=== PATIENT | male | born 1980 | race Caucasian/White ===

== ENCOUNTER 2016-10-31 20:21 | Emergency (ER) | payer OTHER | END 2016-10-31 21:54 | disposition home or self-care (01) | LOC: ER1 20:21 | DX: S83.92XA Sprain of unspecified site of left knee, initial encounter (principal); Z88.6 Allergy status to analgesic agent; X58.XXXA Exposure to other specified factors, initial encounter; Y92.009 Unspecified place in unspecified non-institutional (private) residence as the place of occurrence of the external cause | CPT/HCPCS: 73564; 99283 ==

== ENCOUNTER 2020-11-23 12:43 | Inpatient (IN) | payer OTHER ==
[~2020-11-23] VITALS: Ht 182.9 cm; Wt 125.2 kg
[~2020-11-23 12:43] MED LIST: IBUPROFEN600 MG PO; ZYLOPRIM 100 M100 MG PO
[2020-11-23 14:21] LABS: HEMOGLOBIN 13.3 gm/dl (14.0-17.5); RED BLOOD COUNT 4.47 M/UL (4.20-5.50); WHITE BLOOD COUNT 13.9 K/UL (4.5-11.0)
[2020-11-23 15:38] LABS: BUN/CREATININE RATIO 5 (0-10)
[2020-11-24 03:12] LABS: HEMOGLOBIN 13.2 gm/dl (14.0-17.5); RED BLOOD COUNT 4.43 M/UL (4.20-5.50); WHITE BLOOD COUNT 14.1 K/UL (4.5-11.0)
[2020-11-24 03:58] LABS: BUN/CREATININE RATIO 6 (0-10)
[2020-11-25 06:14] LABS: HEMOGLOBIN 12.7 gm/dl (14.0-17.5); RED BLOOD COUNT 4.08 M/UL (4.20-5.50); WHITE BLOOD COUNT 12.2 K/UL (4.5-11.0)
[2020-11-25 10:04] LABS: BUN/CREATININE RATIO 4 (0-10)
[2020-11-26 03:52] LABS: RED BLOOD COUNT 4.21 M/UL (4.20-5.50); WHITE BLOOD COUNT 12.2 K/UL (4.5-11.0)
[2020-11-26 04:24] LABS: BUN/CREATININE RATIO 6 (0-10)
[2020-11-27 05:29] LABS: HEMOGLOBIN 12.5 gm/dl (14.0-17.5); RED BLOOD COUNT 4.05 M/UL (4.20-5.50)
[2020-11-27 05:31] LABS: BUN/CREATININE RATIO 8 (0-10)
[2020-11-27 05:34] LABS: WHITE BLOOD COUNT 8.5 K/UL (4.5-11.0)
== END 2020-11-27 15:28 | disposition home or self-care (01) | DRG 101 ==
LOC: ER1 12:43 → CDU 18:26 → MED SURG 4 18:26
PROVIDERS: Emergency Medicine; Internal Medicine Infectious Disease; Physician Assistant Medical; ADMIT Family Medicine
DX: G40.89 Other seizures (principal); M62.82 Rhabdomyolysis; E87.1 Hypo-osmolality and hyponatremia; E87.6 Hypokalemia; A08.4 Viral intestinal infection, unspecified; E86.0 Dehydration; R55 Syncope and collapse; G31.84 Mild cognitive impairment of uncertain or unknown etiology; R11.10 Vomiting, unspecified; Z88.6 Allergy status to analgesic agent; Z84.89 Family history of other specified conditions
CPT/HCPCS: 0240U; 36415; 70450; 70551; 71045; 80048; 80053; 81001; 82550; 82553; 83605; 83690; 83735; 83874; 84295; 84484; 85025; 85027; 93005; 95819; 96374; 96375; 97161; 99285; G0378; J2060; J2405; J7030

== ENCOUNTER 2021-01-23 13:51 | Emergency (ER) | payer OTHER ==
[2021-01-23 15:35] LABS: BUN/CREATININE RATIO 8 (0-10)
[2021-01-23 16:09] LABS: HEMOGLOBIN 14.4 gm/dl (14.0-17.5); RED BLOOD COUNT 4.94 M/UL (4.20-5.50); WHITE BLOOD COUNT 7.3 K/UL (4.5-11.0)
[2021-01-23] MEDS ORDERED: ASPIRIN CHEWABL81 MG PO (21:30)
[2021-01-23] MEDS ORDERED: DECADRON6 MG PO (21:30)
[2021-01-24] MEDS ORDERED: IBUPROFEN600 MG PO (02:08)
== END 2021-01-24 00:04 | disposition home or self-care (01) ==
LOC: ER1 13:51
PROVIDERS: Physician Assistant
DX: U07.1 COVID-19 (principal); G40.909 Epilepsy, unspecified, not intractable, without status epilepticus; E87.6 Hypokalemia
CPT/HCPCS: 71045; 80053; 83605; 85025; 87040; 99283; U0002

== ENCOUNTER 2021-01-24 02:01 | Emergency (ER) | payer OTHER ==
[~2021-01-24 02:01] MED LIST changes: +ASPIRIN CHEWABL81 MG PO; +DECADRON6 MG PO
[2021-01-24] MEDS ORDERED: IBUPROFEN600 MG PO (02:08)
== END 2021-01-24 02:20 | disposition home or self-care (01) ==
LOC: ER1 02:01
DX: U07.1 COVID-19 (principal); Z79.01 Long term (current) use of anticoagulants; Z79.899 Other long term (current) drug therapy
CPT/HCPCS: 99283